=== PATIENT | male | born 1940 | race Caucasian/White ===

== ENCOUNTER 2017-08-22 02:55 | Emergency (ER) | payer MEDICARE, BC ==
[~2017-08-22] VITALS: Ht 180.3 cm; Wt 79.4 kg
[2017-08-22] MEDS ORDERED: CHOL50004 PO (03:12)
[2017-08-22] MEDS ORDERED: RIVA20TA PO (03:12)
[2017-08-22] MEDS ORDERED: PROP150T2 PO (03:12)
[2017-08-22] MEDS ORDERED: LISI40TA4 PO (03:12)
[2017-08-22] MEDS ORDERED: METF500T6 PO (03:12)
[2017-08-22] MEDS ORDERED: SIMV40TA5 PO (03:12)
[2017-08-22] MEDS ORDERED: METO-357 PO (03:12)
--- NOTE | 2017-08-22 04:07 | NUR ---
DR ULISSES VILLALPANDO MD AT BEDSIDE FOR MSE.
[2017-08-22] MEDS ORDERED: CLONIDINE HCL 0.2 MG TABLET ONE (04:26)
[2017-08-22] MEDS ORDERED: CLONIDINE HCL 0.2 MG TABLET PO ONE (04:30)
--- NOTE | 2017-08-22 05:00 | NUR ---
PATIENT SLEEPING IN ROOM WITH NO DISTRESS NOTED
--- NOTE | 2017-08-22 05:41 | NUR ---
Patient discharged to home in stable conditon. Written and verbal after care instructions given. Patient verbalizes understanding of instructions. WALKED OUT OF ER WITH NO DISTRESS NOTED WITH TAKING PATIENT HOME
[2017-08-22 05:43] VITALS: BP 135/75
== END 2017-08-22 05:43 | disposition home or self-care (01) ==
LOC: ER 02:59
DX: I10 Essential (primary) hypertension (principal); I48.91 Unspecified atrial fibrillation; E78.5 Hyperlipidemia, unspecified; Z88.5 Allergy status to narcotic agent; Z79.899 Other long term (current) drug therapy; Z79.84 Long term (current) use of oral hypoglycemic drugs
CPT/HCPCS: 99283; A4663